=== PATIENT | male | born 2000 | race Caucasian/White ===

== ENCOUNTER 2022-03-21 14:47 | Emergency (ER) | payer SELFPAY ==
[~2022-03-21] VITALS: Ht 177.8 cm; Wt 63.6 kg
[2022-03-21] MEDS ORDERED: KETOROLAC TROMETHAMINE 10 MG TABLET PO ONE (15:30)
[2022-03-21 17:39] VITALS: BP 116/75
== END 2022-03-21 17:47 | disposition home or self-care (01) ==
LOC: EMS 14:50
DX: S93.622A Sprain of tarsometatarsal ligament of left foot, initial encounter (principal); F12.90 Cannabis use, unspecified, uncomplicated; X50.1XXA Overexertion from prolonged static or awkward postures, initial encounter; Y93.89 Activity, other specified; Y92.89 Other specified places as the place of occurrence of the external cause; Y99.8 Other external cause status
CPT/HCPCS: 99283